=== PATIENT | female | born 1960 | race Hispanic/Latino ===

== ENCOUNTER 2018-06-24 22:19 | Emergency (ER) | payer MEDICAID ==
[2018-06-24 22:44] VITALS: BP 168/88
[2018-06-25] MEDS ORDERED: PERCOCET 5/325 ONE (04:05)
[2018-06-25] MEDS ORDERED: PERCOCET 5/325 PO ONE (04:09)
--- NOTE | 2018-06-25 04:36 | Emergency Department Report ---
ED ENT HPI - General Chief complaint: Dental/Oral Stated complaint: TOOTHACHE Time Seen by Provider: 06/25/18 04:30 Source: patient Mode of arrival: Ambulatory Limitations: No Limitations - History of Present Illness Initial comments: This is acute on chronic dental pain #24&25 with no abscess no facial swelling no gum swelling airway is patent no trismus uvula midline no ear or throat pain MD complaint: tooth pain Onset/Timin -: week(s) Location: tooth # (24&25) Severity: moderate Severity scale (0 -10): 4 Quality: aching Consistency: intermittent Improves with: none Worsens with: other (hot and cold sensation) Associated Symptoms: toothache - Related Data Previous Rx's Medication Instructions Recorded Last Taken Type Acetaminophen with Codeine 1 each PO TID PRN #9 tablet 06/25/18 Unknown Rx [Tylenol with Codeine #3 Tablet] Chlorhexidine Mouthwash [Peridex] 15 ml MM BID #1 bottle 06/25/18 Unknown Rx Clindamycin [Clindamycin CAP] 300 mg PO Q8H #30 cap 06/25/18 Unknown Rx Allergies Allergy/AdvReac Type Severity Reaction Status Date / Time Penicillins Allergy Rash Verified 05/07/18 16:45 ED Dental HPI - General Chief complaint: Dental/Oral Stated complaint: TOOTHACHE Time Seen by Provider: 06/25/18 04:30 Source: patient Mode of arrival: Ambulatory Limitations: No Limitations - Related Data Previous Rx's Medication Instructions Recorded Last Taken Type Acetaminophen with Codeine 1 each PO TID PRN #9 tablet 06/25/18 Unknown Rx [Tylenol with Codeine #3 Tablet] Chlorhexidine Mouthwash [Peridex] 15 ml MM BID #1 bottle 06/25/18 Unknown Rx Clindamycin [Clindamycin CAP] 300 mg PO Q8H #30 cap 06/25/18 Unknown Rx Allergies Allergy/AdvReac Type Severity Reaction Status Date / Time Penicillins Allergy Rash Verified 05/07/18 16:45 ED Review of Systems ROS: Stated complaint: TOOTHACHE Other details as noted in HPI Constitutional: denies: chills, fever Eyes: denies: eye pain, eye discharge, vision change ENT: dental pain. denies: ear pain, throat pain Respiratory: denies: cough, shortness of breath, wheezing Cardiovascular: denies: chest pain, palpitations Endocrine: no symptoms reported Gastrointestinal: denies: abdominal pain, nausea, diarrhea Genitourinary: denies: urgency, dysuria, discharge Musculoskeletal: denies: back pain, joint swelling, arthralgia Skin: denies: rash, lesions Neurological: denies: headache, weakness, paresthesias Psychiatric: denies: anxiety, depression Hematological/Lymphatic: denies: easy bleeding, easy bruising ED Past Medical Hx - Past Medical History Hx Hypertension: Yes Hx Asthma: Yes - Surgical History Additional Surgical History: - Social History Smoking Status: Current Every Day Smoker Substance Use Type: None - Medications Home Medications: Home Medications Medication Instructions Recorded Confirmed Last Taken Type Acetaminophen with Codeine 1 each PO TID PRN #9 tablet 06/25/18 Unknown Rx [Tylenol with Codeine #3 Tablet] Chlorhexidine Mouthwash [Peridex] 15 ml MM BID #1 bottle 06/25/18 Unknown Rx Clindamycin [Clindamycin CAP] 300 mg PO Q8H #30 cap 06/25/18 Unknown Rx ED Physical Exam - General Limitations: No Limitations General appearance: alert, in no apparent distress - Head Head exam: Present: atraumatic, normocephalic - Eye Eye exam: Present: normal appearance - ENT ENT exam: Present: mucous membranes moist, TM's normal bilaterally - Expanded ENT Exam Expanded Teeth exam: Present: dental caries (24&25) Throat exam: Positive: normal inspection - Neck Neck exam: Present: normal inspection, full ROM. Absent: lymphadenopathy, thyromegaly - Respiratory Respiratory exam: Present: normal lung sounds bilaterally. Absent: respiratory distress, wheezes, stridor, chest wall tenderness - Cardiovascular Cardiovascular Exam: Present: regular rate, normal rhythm. Absent: systolic murmur, diastolic murmur, rubs, gallop - GI/Abdominal GI/Abdominal exam: Present: soft, normal bowel sounds. Absent: distended, tenderness, guarding, rebound, rigid, organomegaly, mass, bruit, pulsatile mass , hernia - Rectal Rectal exam: Present: deferred - Extremities Exam Extremities exam: Present: normal inspection - Back Exam Back exam: Present: normal inspection - Neurological Exam Neurological exam: Present: alert, oriented X3, CN II-XII intact, normal gait, reflexes normal - Psychiatric Psychiatric exam: Present: normal affect, normal mood - Skin Skin exam: Present: warm, dry, intact, normal color. Absent: rash ED Course Vital Signs 06/24/18 22:36 Temperature 98 F Pulse Rate 81 Respiratory 16 Rate Blood Pressure 168/88 O2 Sat by Pulse 100 Oximetry ED Medical Decision Making - Medical Decision Making Infected though. Plan clindamycin Peridex Tylenol 3 follow up with dentist in 2 days as scheduled Critical care attestation.: If time is entered above; I have spent that time in minutes in the direct care of this critically ill patient, excluding procedure time. ED Disposition Clinical Impression: Infected dental caries Disposition: DC-01 TO HOME OR SELFCARE Is pt being admited?: No Does the pt Need Aspirin: No Condition: Good Instructions: Dental Caries (ED) Prescriptions: Acetaminophen with Codeine [Tylenol with Codeine #3 Tablet] 1 each PO TID PRN # 9 tablet PRN Reason: pain Chlorhexidine Mouthwash [Peridex] 15 ml MM BID #1 bottle Clindamycin [Clindamycin CAP] 300 mg PO Q8H #30 cap Referrals: PRIMARY CARE, [Primary Care Provider] - 3-5 Days
== END 2018-06-25 04:35 | disposition home or self-care (01) ==
LOC: ED 22:19
DX: K02.9 Dental caries, unspecified (principal); I10 Essential (primary) hypertension; J45.909 Unspecified asthma, uncomplicated; F17.200 Nicotine dependence, unspecified, uncomplicated; Z88.0 Allergy status to penicillin
CPT/HCPCS: 99282